=== PATIENT | female | born 1935 | race Caucasian/White ===

== ENCOUNTER 2016-11-06 16:12 | Emergency (ER) | payer OTHER, BC ==
[~2016-11-06] VITALS: Ht 154.9 cm; Wt 71.1 kg
[~2016-11-06 16:12] MED LIST: ACIPHEX20 MG PO; AGGRENOX1 CAPSULE PO; ASPIR 8181 M1 PO; CLONAZEPAM0.5 MG PO; Cipro PO; DIOVAN HCT 31 TABLE1 PO; FUROSEMIDE20 MG PO; IRON55 MG PO; KLONOPIN0.5 M1 PO; KLOR-CON20 MEQ PO; LASIX20 MG PO; LEVAQUIN500 MG PO; LIVALO2 MG PO; LOVAZA1 GM PO; NEXIUM40 MG PO; POTASSIUM GLUCO99 MG PO; PRAVACHOL10 MG PO; PREDNISONE20 MG PO; PREMARIN0.625 MG PO; ZOLOFT25 MG PO
[2016-11-06 17:14] LABS: EOSINOPHIL (%) 1.9 % (0-5); EOSINOPHIL COUNT 0.2 K/uL (0-0.3); HEMATOCRIT 34.6 % (36.0-46.0); IMMATURE GRANULOCYTE (%) 0.4 % (0.0-0.7); LYMPHOCYTE COUNT 1.4 K/uL (1.0-2.8); MCH 33.5 PG (29.0-34.0); MCHC 32.4 G/DL (30.0-36.0); MCV 103.6 FL (83-99); MEAN PLAT.VOLUME 10.3 uM^3 (9.5-12.4); MONOCYTE (%) 4.8 % (3-12); MONOCYTE COUNT 0.4 K/uL (0-0.8); NEUTROPHIL (%) 77.2 % (45-76); PLATELET COUNT 245 K/uL (156-360); RBC DIS.WIDTH-CV 13.8 % (11.8-14.6); RBC DIS.WIDTH-SD 52.6 % (39-53); RED BLOOD COUNT 3.34 M/uL (3.80-5.20)
[2016-11-06 17:23] LABS: CHLORIDE 104 mEq/L (99-109); POTASSIUM 3.8 mEq/L (3.7-5.4); SODIUM 139 mEq/L (136-147)
[2016-11-06 17:25] LABS: GLUCOSE 127 mg/dL (70-99)
[2016-11-06 17:27] LABS: ANION GAP 10 MEQ/L (2-14)
[2016-11-06 17:29] LABS: GFR ESTIMATE (CALCULATED) > 59 mL/min/
[2016-11-06 17:30] LABS: UREA NITROGEN (BUN) 17 mg/dL (9-23)
[2016-11-06] MEDS ORDERED: ANTIVERT25 MG PO (17:34)
[2016-11-06 17:53] VITALS: BP 112/87
== END 2016-11-06 18:03 | disposition home or self-care (01) ==
LOC: EME 16:12
PROVIDERS: Emergency Medicine
DX: H81.399 Other peripheral vertigo, unspecified ear (principal); I10 Essential (primary) hypertension; K21.9 Gastro-esophageal reflux disease without esophagitis; R56.9 Unspecified convulsions; Z86.73 Personal history of transient ischemic attack (TIA), and cerebral infarction without residual deficits; Z79.82 Long term (current) use of aspirin
CPT/HCPCS: 80048; 85025; 93005; 99281; 99285

== ENCOUNTER → 2017-04-20 | Outpatient (CLI) | payer OTHER, BC ==
[~2017-04-20] MED LIST changes: +ANTIVERT25 MG PO
== END | disposition home or self-care (01) ==
LOC: AMB 10:00
DX: D04.5 Carcinoma in situ of skin of trunk (principal); D22.62 Melanocytic nevi of left upper limb, including shoulder
CPT/HCPCS: 88305

== ENCOUNTER → 2017-05-04 | Outpatient (CLI) | payer OTHER, BC ==
[~2017-05-04] MED LIST changes: +POTASSIUM CHLO10 ME3 PO; +PREDNISONE10 MG PO
== END | disposition home or self-care (01) ==
LOC: AMB 11:30
PROC: 0HB5XZZ Excision of Chest Skin, External Approach (ICD-10-PCS; principal; 2017-05-04)
DX: C44.529 Squamous cell carcinoma of skin of other part of trunk (principal)
CPT/HCPCS: 88305